=== PATIENT | female | born 1950 | race Two or more races ===

== ENCOUNTER 2022-07-13 00:56 | Emergency (ER) | payer OTHER ==
[~2022-07-13] VITALS: Ht 162.6 cm; Wt 113.6 kg
[2022-07-13] MEDS ORDERED: ACETAMINOPHEN 500 MG TAB PO ONE (07:45)
[2022-07-13] MEDS ORDERED: CYCL-837 PO (11:57)
[2022-07-13] MEDS ORDERED: ACET1CAP14 PO (11:57)
[2022-07-13] MEDS ORDERED: traMADol HCL 50 MG TAB PO ONE (12:00)
[2022-07-13 13:01] VITALS: BP 175/80
== END 2022-07-13 12:14 | disposition home or self-care (01) ==
LOC: ER 00:56
DX: S06.0X0A Concussion without loss of consciousness, initial encounter (principal); S70.01XA Contusion of right hip, initial encounter; S83.91XA Sprain of unspecified site of right knee, initial encounter; I10 Essential (primary) hypertension; Z79.899 Other long term (current) drug therapy; W01.0XXA Fall on same level from slipping, tripping and stumbling without subsequent striking against object, initial encounter; Y93.89 Activity, other specified; Y92.89 Other specified places as the place of occurrence of the external cause; Y99.8 Other external cause status
CPT/HCPCS: 70450; 72125; 72192; 73030; 73060; 73502; 73562

== ENCOUNTER 2024-03-17 16:44 | Emergency (ER) | payer MEDICARE, OTHER ==
[~2024-03-17] VITALS: Ht 154.9 cm; Wt 110.6 kg
[~2024-03-17 16:44] MED LIST: ACET1CAP14 PO; CYCL-837 PO
[2024-03-17 17:26] VITALS: BP 130/70; PULSE 70; RESP 18; TEMP 98.6; O2SAT 98
[2024-03-17] MEDS ORDERED: CEPH500C PO (17:44)
== END 2024-03-17 18:02 | disposition home or self-care (01) ==
LOC: ER 16:44
DX: S61.212A Laceration without foreign body of right middle finger without damage to nail, initial encounter (principal); I10 Essential (primary) hypertension; Z79.899 Other long term (current) drug therapy; X58.XXXA Exposure to other specified factors, initial encounter; Y93.89 Activity, other specified; Y92.89 Other specified places as the place of occurrence of the external cause; Y99.8 Other external cause status
CPT/HCPCS: 12001; 73140

== ENCOUNTER 2024-03-25 14:33 | Emergency (ER) | payer MEDICARE, MEDICAID ==
[~2024-03-25] VITALS: Ht 162.6 cm; Wt 110.4 kg
[~2024-03-25 14:33] MED LIST changes: +CEPH500C PO
[2024-03-25 15:46] VITALS: BP 136/66; PULSE 68; RESP 18; TEMP 98.6; O2SAT 98
== END 2024-03-25 15:58 | disposition home or self-care (01) ==
LOC: ER 14:33
DX: S61.212D Laceration without foreign body of right middle finger without damage to nail, subsequent encounter (principal); I10 Essential (primary) hypertension; X58.XXXD Exposure to other specified factors, subsequent encounter